=== PATIENT | male | born 1950 | race Caucasian/White ===

== ENCOUNTER 2022-12-28 10:50 | Outpatient (CLI) | payer MEDICARE, OTHER ==
[2022-12-28] MEDS ORDERED: Magnevist 469MG/ML 20 ML VIAL ONE (11:34)
== END 2022-12-28 10:51 | disposition home or self-care (01) ==
LOC: CSHMRI 10:50
PROVIDERS: ATTEND Otolaryngology
DX: H90.3 Sensorineural hearing loss, bilateral (principal)
CPT/HCPCS: 70553; 82565; A9579